=== PATIENT | male | born 1950 | race Caucasian/White ===

== ENCOUNTER 2019-07-27 09:19 | Emergency (ER) | payer MEDICARE ==
[~2019-07-27] VITALS: Ht 177.8 cm; Wt 77.3 kg
[~2019-07-27 09:19] MED LIST: BAYER CHEWABLE81 MG PO; NEXIUM40 MG PO; ZESTRIL40 MG PO
[2019-07-27 09:26] VITALS: Ht 177.8 cm; Wt 77.3 kg
[2019-07-27] MEDS ORDERED: LISINOPRIL40 MG PO (10:25)
[2019-07-27 10:37] VITALS: BP 156/100
== END 2019-07-27 10:41 | disposition home or self-care (01) ==
LOC: D.ER 09:19
DX: I10 Essential (primary) hypertension (principal); Z76.0 Encounter for issue of repeat prescription; E11.9 Type 2 diabetes mellitus without complications; R42 Dizziness and giddiness

== ENCOUNTER 2019-11-21 17:34 | Emergency (ER) | payer MEDICARE ==
[~2019-11-21] VITALS: Ht 177.8 cm; Wt 77.3 kg
[~2019-11-21 17:34] MED LIST changes: +LISINOPRIL40 MG PO
[2019-11-21 17:45] VITALS: Ht 177.8 cm; Wt 77.3 kg
[2019-11-21 21:32] LABS: HEMATOCRIT 45.8 % (42.0-54.0); HEMOGLOBIN 15.9 g/dL (13.5-17.5); LYMPHOCYTES 29.9 % (15-50); MCH 31.9 pg (26.0-34.0); MCHC 34.7 g/dL (31.0-37.0); MCV 91.8 fL (80.0-100.0); MEAN PLATELET VOLUME 10.6 fL (7.4-10.4); NEUTROPHILS 58.5 % (40-80); PLATELET COUNT 217 10x3/uL (130-400); RBC 4.99 10x6/uL (4.20-6.10); RDW 12.1 % (11.5-14.5)
[2019-11-21 21:58] LABS: ANION GAP 10.7 mmol/L (8-16); BILIRUBIN - TOTAL 0.38 mg/dL (0.2-1.3); CALCIUM 9.2 mg/dL (8.5-10.1); CARBON DIOXIDE 27.4 mmol/L (21.0-32.0); CREATININE - SERUM 1.4 mg/dL (0.6-1.3); POTASSIUM - SERUM 4.1 mmol/L (3.5-5.1); PROTEIN - SERUM 7.6 g/dL (6.4-8.2)
[2019-11-21] MEDS ORDERED: LISINOPRIL-HCT1 EAC4 PO (22:13)
[2019-11-21 22:33] VITALS: BP 164/99
== END 2019-11-21 22:33 | disposition home or self-care (01) ==
LOC: D.ER 17:34
PROVIDERS: Family Medicine
DX: I10 Essential (primary) hypertension (principal); E11.65 Type 2 diabetes mellitus with hyperglycemia; R79.89 Other specified abnormal findings of blood chemistry; R51 Headache; Z91.14 Patient's other noncompliance with medication regimen